=== PATIENT | female | born 1995 | race Caucasian/White ===

== ENCOUNTER 2022-11-01 22:55 | Emergency (ER) | payer MEDICAID ==
[~2022-11-01] VITALS: Ht 154.9 cm; Wt 58.5 kg
[2022-11-01 23:55] VITALS: BP 93/43; TEMP 98.2; O2SAT 100
== END 2022-11-02 00:50 | disposition home or self-care (01) ==
LOC: ER 23:00
DX: K11.5 Sialolithiasis (principal); F41.9 Anxiety disorder, unspecified
CPT/HCPCS: 70110-TC

== ENCOUNTER 2023-06-03 15:31 | Emergency (ER) | payer MEDICAID | END 2023-06-03 16:49 | disposition left against medical advice (07) | LOC: ER 15:35 | DX: Z00.00 Encounter for general adult medical examination without abnormal findings (principal); Z53.21 Procedure and treatment not carried out due to patient leaving prior to being seen by health care provider ==